=== PATIENT | female | born 1940 | race Caucasian/White ===

== ENCOUNTER 2017-10-23 07:57 | Day surgery (SDC) | payer OTHER ==
[~2017-10-23] VITALS: Ht 170.2 cm; Wt 87.3 kg
[2017-10-23 08:00] VITALS: BP 142/86; PULSE 90; RESP 20; TEMP 97.6; O2SAT 90
[2017-10-23] MEDS ORDERED: MULTTAB25 PO (08:11)
[2017-10-23] MEDS ORDERED: VITACAP7 PO (08:11)
[2017-10-23] MEDS ORDERED: VITA10002 PO (08:12)
[2017-10-23] MEDS ORDERED: VITA250T3 PO (08:13)
[2017-10-23] MEDS ORDERED: INSU1INJ13 SQ (08:15)
[2017-10-23] MEDS ORDERED: METF500T PO (08:15)
[2017-10-23] MEDS ORDERED: LEVO.075 PO (08:17)
[2017-10-23] MEDS ORDERED: LOSA50TA PO (08:18)
[2017-10-23] MEDS ORDERED: FENO160T PO (08:18)
[2017-10-23] MEDS ORDERED: BUPR100T4 PO (08:19)
[2017-10-23] MEDS ORDERED: ESCI10TA PO (08:20)
[2017-10-23] MEDS ORDERED: SODIUM CHLOR 0.9% 1000 ML IV SCH (09:00)
[2017-10-23] MEDS ORDERED: LIDOCAINE 1%/EPINEPHrine 1:100,000 SOLN 20 ML VIAL ONE (09:11)
--- NOTE | 2017-10-23 10:45 | PD.RAD ---
Post CT Procedure Prog Note Pre Procedure Diagnosis: (1) Bone mass Post Procedure Diagnosis: (1) Bone mass Procedure Date: Oct 23, 2017 Supervising Radiologist: Riley Wilson Anesthesia: Conscious Sedation Plan of Activity Patient to Unit: [facility] Patient Condition: Good See PACS Report for procedural detail/treatment Riley Wilson MD Oct 23, 2017 10:44
[2017-10-23 10:59] VITALS: BP 142/69; PULSE 83; RESP 17; TEMP 97.8; O2SAT 92
--- NOTE | 2017-10-23 11:26 | RADRPT ---
EXAM DATE/TIME: 10/23/2017 09:55 [place] COMPARISON: No previous studies available for comparison. INDICATIONS : Remote history of breast CA with newly diagnosed diffuse sclerotic osseous metastatic disease. Biopsy has been requested. A sclerotic mass in the left ilium will be targeted. SEDATION TIME: 30 minutes BIOPSY SITE: Left iliac MEDICATION(S): 1.) 4 mg midazolam (Versed) IV 2.) 200 mcg fentanyl (Sublimaze) IV DEVICE(S): 1.) 12 gauge Bone biopsy needle MEDICAL HISTORY : Carcinoma, breast. SURGICAL HISTORY : Mastectomy ENCOUNTER: Initial ACUITY: 1 day PAIN SCORE: 0/10 LOCATION: Left pelvis A total of two core specimen(s) were obtained and sent to the laboratory for pathologic evaluation. PROCEDURE: 1. CT guided bone deep biopsy. 2. Conscious sedation with continuous EKG and oximetry monitoring. Prior to the procedure informed consent was obtained. Any appropriate prior imaging studies were rev iewed. Using automated exposure control and adjustment of the mA and/or kV according to patient size, radiat ion dose was kept as low as reasonably achievable to obtain optimal diagnostic quality images. DICOM format image data is available electronically for review and comparison. The site was prepped in a sterile fashion. Full sterile technique was used, including cap, mask, anatoliy rile gloves and gown and a large sterile sheet. Hand hygiene and 2% chlorhexidine and/or betadine/al cohol prep was utilized per protocol for cutaneous antisepsis. The skin and subcutaneous tissues wer e infiltrated with local anesthetic solution. With CT guidance the previously identified target was localized. Biopsy was performed using the presc ribed needle as above. In total, 2 large core biopsies were obtained. Additionally, aspirates were pe rformed and submitted in Cytolite and Zfix solution. Adequate hemostasis was obtained with compressio n at the puncture site. Follow-up CT scan reveals no hemorrhage. The patient tolerated the procedure well and there were no complications. The patient was returned to the Radiology Outpatient Unit in stable condition. CONCLUSION: Uncomplicated CT guided biopsy of sclerotic mass in the left ilium. Riley Wilson MD on October 23, 2017 at 11:22 Board Certified Radiologist. This report was verified electronically.
[2017-10-23 11:29] VITALS: BP 138/77; PULSE 92; RESP 18; O2SAT 95
[2017-10-23 11:59] VITALS: BP 135/72; PULSE 90; RESP 17; O2SAT 98
== END 2017-10-23 12:45 | disposition home or self-care (01) ==
LOC: HRAD 07:57 → HRIP 07:58 → HRAD 12:45
PROVIDERS: ATTEND Internal Medicine
DX: M89.9 Disorder of bone, unspecified (principal); Z85.3 Personal history of malignant neoplasm of breast
CPT/HCPCS: 20220; 77012; 88307; 88311; 99152; 99153; J7030

== ENCOUNTER → 2018-02-01 | Outpatient (CLI) | payer OTHER ==
[~2018-02-01] MED LIST: BUPR100T4 PO; ESCI10TA PO; FENO160T PO; INSU1INJ13 SQ; LEVO.075 PO; LOSA50TA PO; METF500T PO; MULTTAB25 PO; VITA10002 PO; VITA250T3 PO; VITACAP7 PO
--- NOTE | 2018-02-01 09:44 | RADRPT ---
EXAM DATE/TIME: 02/01/2018 00:00 COMPARISON: CT NEEDLE BIOPSY BONE DEEP, October 23, 2017, 9:55. INDICATIONS : CT guided biopsy of left iliac bone lesion The lesion in question was previously biopsied in October of 2017. The images taken at the time of t hat procedure revealed excellent positioning of the biopsy needle centrally within the sclerotic lesi on in question the left iliac bone and the post procedure images reveal a large cylindrical filling d efect in the central aspect of the lesion. Repeat sampling of this lesion is not felt likely to be us eful. Jamison Viera MD on February 01, 2018 at 9:39 Board Certified Radiologist. This report was verified electronically.
== END ==
LOC: HRAD 08:54
PROVIDERS: ATTEND Internal Medicine
DX: M89.9 Disorder of bone, unspecified (principal)